=== PATIENT | male | born 1955 | race Caucasian/White ===

== ENCOUNTER 2025-09-03 13:51 | Emergency (ER) | payer MEDICARE, SELFPAY ==
[2025-09-03 13:58] VITALS: BP 198/125; PULSE 118; TEMP 36.4; O2SAT 97; BMI 14.3
--- NOTE | 2025-09-03 14:03 | ECG_ITS ---
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 Measurements Intervals [place] Rate: 116 P: 85 RI: 141 QRS: 90 QRSD: 114 T: 73 QT: 430 QTc: 600 Interpretive Statements SINUS TACHYCARDIA POSSIBLE RIGHT ATRIAL ENLARGEMENT [0.25mV P-WAVE] LEFT ATRIAL ENLARGEMENT [-0.15mV P-WAVE IN V1/V2] INCOMPLETE RIGHT BUNDLE BRANCH BLOCK [90+ ms QRS DURATION, TERMINAL R IN V1/V2, 40+ ms S IN I/aVL/V4/V5/V6] MODERATE T-WAVE ABNORMALITY, CONSIDER ANTEROLATERAL ISCHEMIA [-0.1+ mV T-WAVE IN V3-V6] INTERPRETATION BASED ON A DEFAULT AGE OF 40 YEARS No previous ECG available for comparison Electronically Signed On 09-03-2025 16:45:12 CDT by Killian Anglin M.D. [id number]
[2025-09-03 14:09] VITALS: BP 207/145; PULSE 86; RESP 16; TEMP 36.9; O2SAT 98
[2025-09-03 14:32] VITALS: BP 155/101; PULSE 70; RESP 16; TEMP 36.9; O2SAT 98
--- NOTE | 2025-09-03 14:32 | XRR_ITS ---
PROCEDURE INFORMATION: Exam: XR Chest Exam date and time: 09/03/2025 2:40 PM Age: 69 years old Clinical indication: Other: Palpitations TECHNIQUE: Imaging protocol: Radiologic exam of the chest. Views: 1 view. Total images: 413 COMPARISON: No relevant prior studies available. FINDINGS: Lungs: Pulmonary hyperinflation, suggesting COPD. Pleural spaces: Unremarkable. No pleural effusion. No pneumothorax. Heart/Mediastinum: Unremarkable. No cardiomegaly. Bones/joints: Unremarkable. XR/XR chest 1V portable [id number] IMPRESSION: 1. Pulmonary hyperinflation, suggesting COPD. 2. No acute cardiopulmonary process.
--- NOTE | 2025-09-03 14:34 | W.ED.ARRPALP ---
HPI - Arrhythmia/Palpitations General: Chief Complaint: Arrhythmia/Palpitations Stated Complaint: HR fast Hard to walk legs are Shakey Time Seen by Provider: 09/03/25 14:32 History of Present Illness: Patient is a 69-year-old male with history of hypertension, noncompliance, presents to the ED due to dizziness, palpitations x 2 months. Patient went to see his primary care physician for scheduled visit regarding these symptoms, and was asked to come to the ED. No sensation changes, no dysphagia, dysarthria, word finding, confusion. Dizziness, upon standing. Noncompliance: Metoprolol 25 mg p.o. twice daily is taken sometimes on a daily basis. Patient delineates: Palpitations on and off, no history of feeling irregularities, dizziness upon standing. Caffeine intake: A pot of coffee daily and [employer] cup, Mountain Dew during the day, sometimes tea, coffee at night. Does not: Drink alcohol, utilize drugs/marijuana/amphetamines, drink energy drinks. Does have longstanding tobacco history. Patient unaware of any thyroid dysfunction. Associated symptoms: Deny nausea, syncope or vomiting Related Data Home Medications ?Medication ?Instructions ?Recorded ?Confirmed diphenhydramine HCl 25 mg tablet 25 mg PO BID PRN allergies 09/03/25 09/03/25 (Benadryl Allergy) metoprolol tartrate 25 mg tablet 25 mg PO BID 09/03/25 09/03/25 turmeric root extract 750 mg 1,500 mg PO DAILY 09/03/25 09/03/25 capsule Previous Rx's ?Medication ?Instructions ?Recorded carvedilol 25 mg tablet 25 mg PO Q12H #60 tabs 09/03/25 Allergies Allergy/AdvReac Type Severity Reaction Status Date / Time No Known Allergies Allergy Verified 09/03/25 14:09 Review of Systems General: Reports: 10 or more systems reviewed and unremarkable except in HPI and below Const: Reports: fatigue; Denies: fever(s), chills or malaise Eyes: Reports: blurry vision; Denies: change in vision ENMT: Denies: throat pain or mouth pain Card: Reports: chest pain and palpitations; Denies: irregular heart rhythm, edema or syncope Resp: Denies: dyspnea or non-productive cough GI: Denies: abdominal pain, nausea or vomiting : Denies: flank pain or difficulty urinating Musc: Denies: neck pain or back pain Neuro: Reports: dizziness and other (Shakiness with a certain type of blood pressure pill. ); Denies: headache(s), numbness in extremities, weakness in extremities, lack of coordination, vertigo or Slurred speech present Physical Exam Const: COMMON NORMALS: no acute distress, average body habitus and patient oriented x3 GENERAL APPEARANCE: cooperative HENMT: COMMON NORMALS: normocephalic and atraumatic HEAD & SCALP: normocephalic and atraumatic Lymph: LYMPHATIC: no lymphadenopathy noted Resp: COMMON NORMALS: normal respiratory effort and No retractions EFFORT & INSPECTION: Yes able to speak in complete sentences, Yes symmetric chest movement, No tachypneic and No respiratory distress AUSCULTATION: bronchial breath sounds (t/o) GI: COMMON NORMALS: Normal to inspection, nondistended, normoactive bowel sounds present, Soft to palpation, non-tender and No hepatosplenomegaly present PALPATION: Yes Soft to palpation and Yes No hepatosplenomegaly present : COMMON NORMALS: Yes no CVA tenderness BLADDER/KIDNEY EXAM: Yes no CVA tenderness Back/Pelvis: COMMON NORMALS: no CVA tenderness Extremity: COMMON NORMALS: normal to inspection, full ROM, capillary refill normal and no pedal edema Neuro: COMMON NORMALS: patient oriented x3 Course Vital Signs: Vital signs: Vital Signs Temperature 98.4 F 09/03/25 14:09 Pulse Rate 86 09/03/25 14:09 Respiratory Rate 16 09/03/25 14:09 Blood Pressure 207/145 09/03/25 14:09 Pulse Oximetry 98 09/03/25 14:09 Oxygen Delivery Me thod Room Air 09/03/25 14:09 MDM - Arrhythmia/Palpitations Medical Decision Making C9-year-old gentleman with chest pain, vague dizziness symptoms, and uncontrolled hypertension for over 2 months. Today, he is ruled out from a cardiac standpoint, and appears to have association with uncontrolled blood pressure. Initially, metoprolol given x 1, however blood pressure continued to be elevated. Carvedilol was given by mouth. Labetalol was given x 1, and fortunately he had symptoms of nausea, dizziness. He did feel like he was going to throw up. This improved after time, blood pressure 150/100, and fluid intake. He no longer feels nauseous. I have explained everything to this patient to help him with his underlying issues. He will follow-up with his primary care. Medical Records I reviewed the patient's medical records. Lab Data I reviewed the patient's lab results. 09/03/25 14:40 09/03/25 14:40 Radiology Impressions Chest X-Ray 09/03/25 14:32 IMPRESSION: 1. Pulmonary hyperinflation, suggesting COPD. 2. No acute cardiopulmonary process. Laboratory Results WBC 7.85 10^3/uL (3.29-11.43) 09/03/25 14:40 RBC 5.47 10^6/uL (3.85-5.65) 09/03/25 14:40 Hgb 17.00 g/dL (11.27-16.99) H 09/03/25 14:40 Hct 49.7 % (37-53) 09/03/25 14:40 MCV 90.9 fl (82-101) 09/03/25 14:40 MCH 31.1 pg (27-33) 09/03/25 14:40 MCHC 34.2 g/dL (30-55) 09/03/25 14:40 RDW 14.3 % (12.1-15.1) 09/03/25 14:40 Plt Count 174 10^3/cmm (157-399) 09/03/25 14:40 MPV 10.1 fL (7.4-10.4) 09/03/25 14:40 Neut % (Auto) 71.4 % 09/03/25 14:40 Lymph % (Auto) 18.6 % 09/03/25 14:40 [place] % (Auto) 8.4 % 09/03/25 14:40 Eos % (Auto) 0.9 % 09/03/25 14:40 Baso % (Auto) 0.4 % 09/03/25 14:40 Neut # (Auto) 5.61 10^3/uL (1.8-7.7) 09/03/25 14:40 Lymph # (Auto) 1.5 10^3/uL (0.8-4.8) 09/03/25 14:40 [place] # (Auto) 0.7 10^3/uL (0.2-0.9) 09/03/25 14:40 Eos # (Auto) 0.1 10^3/uL (0.0-0.8) 09/03/25 14:40 Baso # (Auto) 0.0 10^3/uL (0.0-0.1) 09/03/25 14:40 Nucleated RBC % (auto) 0 % 09/03/25 14:40 Nucleated RBCs # 0.0 /100WBC 09/03/25 14:40 PT 13.20 SECONDS (12.1-14.9) 09/03/25 14:40 INR 0.94 (0.8-1.2) 09/03/25 14:40 APTT 32.4 SECONDS (23.9-36.7) 09/03/25 14:40 Sodium 136 mmol/L (136-145) 09/03/25 14:40 Potassium 3.5 mmol/L (3.5-5.1) 09/03/25 14:40 Chloride 97 mmol/L (98-107) L 09/03/25 14:40 Carbon Dioxide 27 mmol/L (22-29) 09/03/25 14:40 Anion Gap 15.5 (5-19) 09/03/25 14:40 BUN 21 mg/dL (8-23) 09/03/25 14:40 Creatinine 1.0 mg/dL (0.7-1.2) 09/03/25 14:40 GFR Calculation 74.5 mL/min (90-130) L 09/03/25 14:40 Glucose 104 mg/dL (65-115) 09/03/25 14:40 Calculated Osmolality 285 mOsm/kg (285-295) 09/03/25 14:40 Calcium 9.2 mg/dL (8.5-10.5) 09/03/25 14:40 Magnesium 2.1 mg/dL (1.7-2.3) 09/03/25 14:40 Total Bilirubin 0.3 mg/dL (0.15-1.2) 09/03/25 14:40 AST 22 U/L (0-40) 09/03/25 14:40 ALT 13 U/L (0-41) 09/03/25 14:40 Alkaline Phosphatase 106 U/L (40-130) 09/03/25 14:40 Troponin T Baseline 20 ng/L (0-15) H 09/03/25 14:40 Troponin T 120 Minute 19.20 ng/L (0-15) H 09/03/25 16:36 Delta Troponin T -0.80 ABS# (0-10) L 09/03/25 16:36 NT-Pro-B Natriuret Pep 1441 pg/mL (0-125) H 09/03/25 14:40 Total Protein 7.6 g/dL (6.6-8.7) 09/03/25 14:40 Albumin 4.3 g/dL (3.5-5.2) 09/03/25 14:40 Globulin 3.3 g/dL (1.3-4.6) 09/03/25 14:40 TSH 0.99 uIU/mL (0.27-4.20) 09/03/25 14:40 Ethyl Alcohol < 10 mg/dL (0-10) 09/03/25 14:40 All radiology interpretation(s) finalized by discharge EKG Data EKG 1: Interpretation: LVH, right axis deviation, incomplete right bundle branch block, right and left atrial enlargement Other EKG comments: Chest X-Ray 09/03/25 14:32 IMPRESSION: 1. Pulmonary hyperinflation, suggesting COPD. 2. No acute cardiopulmonary process. EKG 2: Interpretation: LVH, right axis, sinus rhythm left and right atrial enlargement, QTc 463, rate 82 Other EKG comments: Chest X-Ray 09/03/25 14:32 IMPRESSION: 1. Pulmonary hyperinflation, suggesting COPD. 2. No acute cardiopulmonary process. Discharge Plan Discharge Patient Disposition: Home Clinical Impression: Hypertension Condition: Stable Prescriptions: New carvedilol 25 mg tablet 25 mg PO Q12H Qty: 60 0RF Rx Instructions: must administer with a meal/food No Action diphenhydramine HCl [Benadryl Allergy] 25 mg Tablet 25 mg PO BID PRN (Reason: allergies) turmeric root extract 750 mg Capsule 1,500 mg PO DAILY metoprolol tartrate 25 mg Tablet 25 mg PO BID Discharge Orders: Discharge ED (Routine); Ordered 09/03/25 Ordered By: Jasmin Boss Discharge Diet: Low Salt Discharge Activity: Resume usual activity Patient Instructions: DASH Eating Plan (ED), Hypertension (ED), Noncardiac Chest Pain (ED), Patient Portal & Deana Instructions Activity Restrictions/Additional Instructions: - Stop your metoprolol in favor of your medication at the pharmacy: Carvedilol. This is also unfortunately twice daily, the continued release appears to be too expensive. The continued release is a daily medication (the expensive one). Please check with your doctor to see if they can get this covered. - Reduce your caffeine as we discussed -Low-salt diet as we discussed. Information has been given to you above - Blood pressure control is essential for your health - Your blood is thicker than it should be, which could be from your dehydration from drinking all caffeinated beverages. Please intake additional 1 L of noncaffeinated beverage. This could be the underlying reason of your dizziness. - Follow-up with your doctor as we discussed - You ruled out from a cardiac standpoint on this visit, however this does not mean you do not have blockage, it means you are not having a current event/heart attack. Follow-up with your doctor regarding any additional testing that could help with definitive diagnosis of blockage. - Please return to the ED if you have more issues Thank you for choosing [facility] for your healthcare needs today. You have been screened and evaluated and felt safe for discharge. Health conditions do change or evolve sometimes and as such it is important that you follow up with your Primary Doctor to be re checked, 3-5 days is a general good time frame for follow up. You are always welcome to return to the ED for re assessment if your symptoms are worsening or you have new concerns Print Language: Panamanian Coding Level of Care Code ED Cleaner And Preparer for Willie Arzate
--- OUTSIDE RECORDS SUMMARY | 2025-09-03 14:41 | XMS_ITS | Clinical Summary ---
Author Organization [facility] Address [address] 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
--- OUTSIDE RECORDS SUMMARY | 2025-09-03 14:41 | XMS_ITS | Encounter Summary ---
Author Organization [facility] Address [address] [place] [address] Care Team Providers Care Datapower Developer Name Role Phone Unavailable Primary Care Provider Unavailabl e Encounter Details Date Type Department Care Team (Late st Contact Info) Description 10/11/2000 Outpatient Historical 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
[2025-09-03 14:56] LABS: Hematocrit 49.7 % (37-53); Hemoglobin 17.00 g/dL (11.27-16.99); Mean Corpuscular HGB Conc 34.2 g/dL (30-55); Mean Corpuscular Hemoglobin 31.1 pg (27-33); Mean Corpuscular Volume 90.9 fl (82-101); Nucleated Red Blood Cells % 0 %; Platelet Count 174 10^3/cmm (157-399); Red Blood Count 5.47 10^6/uL (3.85-5.65); White Blood Count 7.85 10^3/uL (3.29-11.43)
[2025-09-03] MEDS: metoprolol tartrate 1 mg/1 mL SDV 5 mL 5 MG IVP (14:58)
[2025-09-03 15:22] LABS: INR 0.94 (0.8-1.2); Prothrombin Time 13.20 SECONDS (12.1-14.9)
[2025-09-03 15:23] LABS: Partial Thromboplastin Time 32.4 SECONDS (23.9-36.7)
--- NOTE | 2025-09-03 15:26 | PC.PHAR ---
Patient states he takes Metoprolol Tartrate 25mg.Showed a picture of the bottle from his phone. [facility] since 08/13/24 . Patient did fill the Metoprolol on that date .
[2025-09-03 15:29] LABS: Troponin(5th) Baseline 20 ng/L (0-15)
[2025-09-03 15:36] LABS: Potassium 3.5 mmol/L (3.5-5.1)
[2025-09-03 15:42] LABS: Alanine Aminotransferase 13 U/L (0-41); Albumin Level 4.3 g/dL (3.5-5.2); Alkaline Phosphatase 106 U/L (40-130); Anion Gap 15.5 (5-19); Aspartate Amino Transferase 22 U/L (0-40); Blood Urea Nitrogen 21 mg/dL (8-23); Calcium 9.2 mg/dL (8.5-10.5); Carbon Dioxide 27 mmol/L (22-29); Chloride 97 mmol/L (98-107); Creatinine Clr Calc Pharmacy 42.3096; Globulin 3.3 g/dL (1.3-4.6); Glucose 104 mg/dL (65-115); Magnesium 2.1 mg/dL (1.7-2.3); NT Pro B Type Natriuretic Pept 1441 pg/mL (0-125); Osmolality Calculated 285 mOsm/kg (285-295); Sodium 136 mmol/L (136-145); Thyroid Stimulating Hormone 0.99 uIU/mL (0.27-4.20); Total Protein 7.6 g/dL (6.6-8.7)
[2025-09-03 15:43] LABS: Alcohol Level < 10 mg/dL (0-10)
--- NOTE | 2025-09-03 16:33 | ECG_ITS ---
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
[2025-09-03] MEDS: labetalol 5 mg/mL SDV 20mL 20 MG IVP (16:57)
--- NOTE | 2025-09-03 17:17 | PC.NURSE ---
patient called me to the room because he was feeling hot and flushed. Pt appeared pale oin color and HR was in the 50s, BP went to 122/90. Patient did get a little nauseated but never actually vomited. HR is currently 70 and patient reports that he is feeling better.
[2025-09-03 17:31] LABS: Troponin 5 2HR 19.20 ng/L (0-15); Troponin 5 2HR Delta -0.80 ABS# (0-10)
[2025-09-03 18:08] VITALS: BP 155/102; PULSE 82; O2SAT 98
== END 2025-09-03 18:04 | disposition home or self-care (01) ==
PROVIDERS: Emergency Provider Physician Assistant
DX: I10 Essential (primary) hypertension (principal)
CPT/HCPCS: 36415; 71045; 80053; 80307; 83735; 83880; 84443; 84484; 85025; 85610; 85730; 93005; 96374; 96375; 99285; J3490; J9999